=== PATIENT | female | born 2000 | race American Indian/Alaskan Native ===

== ENCOUNTER 2019-04-10 18:59 | Emergency (ER) | payer SELFPAY ==
--- NOTE | 2019-04-10 20:11 | Event Note ---
ED Screening Note ED Screening Note: heavy vaginal bleeding that began 3 days ago states she is changing every hour, tampon and pad states her last menstrual cycle was on 03/21/19 lower abd cramping has not taken anything for it PMHx none no allergies to meds This initial assessment/diagnostic orders/clinical plan/treatment(s) is/are subject to change based on patients health status, clinical progression and re- assessment by fellow clinical providers in the ED. Further treatment and workup at subsequent clinical providers discretion. Patient/guardian urged not to elope from the ED as their condition may be serious if not clinically assessed and managed. Initial orders include: labs, UA
[2019-04-10 21:02] LABS: Basophils % (Auto) 0.5 % (0.0-1.8); Eosinophils % (Auto) 0.7 % (0.0-4.3); Hematocrit 41.3 % (30.3-42.9); Hemoglobin 13.6 gm/dl (10.1-14.3); Lymphocytes # (Auto) 2.1 K/mm3 (1.2-5.4); Lymphocytes % (Auto) 34.6 % (13.4-35.0); Mean Corpuscular HGB Conc 33 % (30-34); Mean Corpuscular Volume 90 fl (79-97); Monocytes # (Auto) 0.5 K/mm3 (0.0-0.8); Monocytes % (Auto) 7.8 % (0.0-7.3); Platelet Count 227 K/mm3 (140-440); Red Cell Distribution Width 13.2 % (13.2-15.2)
[2019-04-10 21:20] LABS: Alanine Aminotransferase < 5 units/L (7-56); Albumin 4.1 g/dL (3.9-5); BUN/Creatinine Ratio 13; Blood Urea Nitrogen 9 mg/dL (7-17); Calcium 9.5 mg/dL (8.4-10.2); Hemolysis Index 11
[2019-04-10 21:50] LABS: Color,Urine Yellow (Yellow)
[2019-04-10 21:51] LABS: Ictotest,Urine Negative (Negative); PH,Urine 6.5 (5.0-7.0); Protein,Urine <15 mg/dL mg/dL (Negative); Urobilinogen,Urine < 2.0 mg/dL (<2.0)
--- NOTE | 2019-04-10 22:50 | Emergency Department Report ---
ED Female HPI - General Chief complaint: Vaginal Bleeding Stated complaint: LOWER ABD PAIN/WEAK Time Seen by Provider: 04/10/19 20:10 Source: patient Mode of arrival: Ambulatory Limitations: No Limitations - History of Present Illness Initial comments: heavy vaginal bleeding that began 3 days ago states she is changing every hour, tampon and pad states her last menstrual cycle was on 03/21/19 lower abd cramping Discontinued Depo 2 months ago has not taken anything for it PMHx none no allergies to meds Onset/Timin -: days(s) Location: suprapubic Severity scale (0 -10): 3 Quality: cramping Consistency: intermittent Worsens with: menstrual period Are you Now?: Yes Last Menstrual Period: 03/21/19 EDC: 12/26/19 Associated Symptoms: vaginal bleeding - Related Data Allergies Allergy/AdvReac Type Severity Reaction Status Date / Time No Known Allergies Allergy Verified 04/10/19 20:12 ED Review of Systems ROS: Stated complaint: LOWER ABD PAIN/WEAK Other details as noted in HPI ED Past Medical Hx - Past Medical History Previous Medical History?: No - Social History Smoking Status: Never Smoker Substance Use Type: None ED Physical Exam - General Limitations: No Limitations General appearance: alert, in no apparent distress - Head Head exam: Present: atraumatic, normocephalic - Eye Eye exam: Present: normal appearance - ENT ENT exam: Present: mucous membranes moist - Neck Neck exam: Present: normal inspection - Respiratory Respiratory exam: Present: normal lung sounds bilaterally. Absent: respiratory distress - Cardiovascular Cardiovascular Exam: Present: regular rate, normal rhythm. Absent: systolic murmur, diastolic murmur, rubs, gallop - GI/Abdominal GI/Abdominal exam: Present: soft, normal bowel sounds. Absent: distended, tenderness - Back Exam Back exam: Present: normal inspection - Neurological Exam Neurological exam: Present: alert, oriented X3, normal gait - Psychiatric Psychiatric exam: Present: normal affect, normal mood - Skin Skin exam: Present: warm, dry, intact, normal color. Absent: rash ED Course Vital Signs 04/10/19 19:22 Temperature 99.1 F Pulse Rate 70 Respiratory 18 Rate Blood Pressure 116/72 O2 Sat by Pulse 100 Oximetry ED Medical Decision Making - Lab Data Result diagrams: 04/10/19 20:37 04/10/19 20:37 - Medical Decision Making heavy vaginal bleeding that began 3 days ago states she is changing every hour, tampon and pad states her last menstrual cycle was on 03/21/19 lower abd cramping has not taken anything for it PMHx none no allergies to meds Critical care attestation.: If time is entered above; I have spent that time in minutes in the direct care of this critically ill patient, excluding procedure time. ED Disposition Clinical Impression: Dysfunctional uterine bleeding Disposition: TO HOME OR SELFCARE Is pt being admited?: No Does the pt Need Aspirin: No Condition: Stable Instructions: Dysfunctional Uterine Bleeding (ED) Referrals: PRIMARY CAREMD [Primary Care Provider] - 3-5 Days GOPAL SANCHEZ MD [Staff Physician] - 3-5 Days ETHAN JOYCE MD [Staff Physician] - 3-5 Days
[2019-04-10 23:03] VITALS: BP 116/71
== END 2019-04-10 23:03 | disposition home or self-care (01) ==
LOC: ED 18:59
DX: N93.8 Other specified abnormal uterine and vaginal bleeding (principal)
CPT/HCPCS: 36415; 80053; 81001; 84702; 85025